=== PATIENT | male | born 1965 | race African-American/Black ===

== ENCOUNTER 2023-10-16 17:19 | Emergency (ER) | payer OTHER ==
[~2023-10-16] VITALS: Ht 170.2 cm; Wt 80.7 kg
[2023-10-16 18:14] LABS: BASOPHILS # (AUTO) 0.5 K/UL (0.0-0.2); BASOPHILS % (AUTO) 3.6 % (0.0-2.0); EOSINOPHILS # (AUTO) 0.1 K/uL (0.0-0.7); EOSINOPHILS % (AUTO) 0.9 % (0.0-7.0); HEMATOCRIT 43.1 % (36.7-47.1); LYMPHOCYTES # (AUTO) 1.2 K/uL (0.8-4.8); LYMPHOCYTES % (AUTO) 9.4 % (20.5-51.5); MEAN CORPUSCULAR HEMOGLOBIN 27.1 uug (23.8-33.4); MEAN CORPUSCULAR HGB CONC 33 g/dL (32.5-36.3); MEAN CORPUSCULAR VOLUME 83.1 fL (73.0-96.2); MONOCYTES # (AUTO) 0.7 K/uL (0.1-1.30); MONOCYTES % (AUTO) 5.6 % (0.0-11.0); NEUTROPHILS # (AUTO) 10.3 K/uL (1.8-8.9); NEUTROPHILS % (AUTO) 80.5 % (38.5-71.5); PLATELET COUNT (AUTO) 388 K/uL (152-348); RED BLOOD CELL COUNT(AUTO) 5.18 MIL/uL (4.06-5.63); WHITE BLOOD COUNT (AUTO) 12.8 K/uL (3.6-10.2)
[2023-10-16 18:31] LABS: DIFFERENTIAL COMMENT 1
[2023-10-16 18:32] LABS: CALCIUM 9.5 mg/dL (8.5-10.1); CARBON DIOXIDE 26 mmol/L (21-32); CHLORIDE 101 mmol/L (98-107); CREATININE 0.9 mg/dL (0.6-1.3); GLUCOSE 120 mg/dL (74-106); POTASSIUM 3.6 mmol/L (3.5-5.1); SODIUM SERUM 138 mmol/L (136-145); UREA NITROGEN, BLOOD 16 mg/dL (7-18)
[2023-10-16 18:45] LABS: ALANINE AMINOTRANSFERASE 32 U/L (16-63); ALBUMIN 3.6 g/dL (3.4-5.0); ALKALINE PHOSPHATASE 89 U/L (50-136); ASPARTATE AMINOTRANSFERASE 16 U/L (15-37); BILIRUBIN,DIRECT 0.1 mg/dL (0.0-0.2); BILIRUBIN,TOTAL 0.6 mg/dL (0.2-1.0); NT-PRO BNP 27 pg/mL (0-125)
[2023-10-16] MEDS ORDERED: LORA0.5T48 PO (19:13)
[2023-10-16 19:29] LABS: *AMPHETAMINE, URINE NEGATIVE (NEGATIVE); *BARBITURATE, URINE NEGATIVE (NEGATIVE); *BENZODIAZEPINE, URINE NEGATIVE (NEGATIVE); *CANNABINOID, URINE POSITIVE (NEGATIVE); *COCCAINE, URINE NEGATIVE (NEGATIVE); *OPIATE, URINE NEGATIVE (NEGATIVE); *PHENCYCLIDINE SCREEN,URINE NEGATIVE (NEGATIVE); FENTANYL, URINE NEGATIVE (NEGATIVE)
[2023-10-16] MEDS ORDERED: LORAZEPAM 0.5 MG TABLET ONE (19:43)
[2023-10-16] MEDS ORDERED: LORAZEPAM 0.5 MG TABLET PO ONE (19:45)
[2023-10-16 19:51] VITALS: BP 126/72; TEMP 98.2; O2SAT 99
== END 2023-10-16 19:52 | disposition home or self-care (01) ==
LOC: ER 17:22
DX: F41.9 Anxiety disorder, unspecified (principal); T40.715A Adverse effect of cannabis, initial encounter; F43.20 Adjustment disorder, unspecified; R42 Dizziness and giddiness; R20.2 Paresthesia of skin; R20.0 Anesthesia of skin; Z79.899 Other long term (current) drug therapy; Y92.89 Other specified places as the place of occurrence of the external cause
CPT/HCPCS: 36415; 71045; 84484; 85025; 85730; 93005; A4606; A4663